=== PATIENT | female | born 1955 | race Caucasian/White ===

== ENCOUNTER 2024-02-10 16:56 | Emergency (ER) | payer MEDICARE, OTHER | END 2024-02-10 17:38 | disposition home or self-care (01) | LOC: CSHERS 16:56 | DX: M79.651 Pain in right thigh (principal); I10 Essential (primary) hypertension; E11.9 Type 2 diabetes mellitus without complications; K21.9 Gastro-esophageal reflux disease without esophagitis | CPT/HCPCS: 99283 ==